=== PATIENT | female | born 1995 | race American Indian/Alaskan Native ===

== ENCOUNTER 2016-09-05 05:17 | Emergency (ER) | payer BC, MEDICAID ==
[2016-09-05 05:52] LABS: Basophils % (Auto) 0.3 % (0.0-1.8); Hemoglobin 13.6 gm/dl (10.1-14.3); Mean Corpuscular HGB Conc 33 % (30-34); Mean Corpuscular Hemoglobin 30 pg (28-32); Mean Corpuscular Volume 91 fl (79-97); Platelet Count 232 K/mm3 (140-440); Red Blood Count 4.53 M/mm3 (3.65-5.03); Red Cell Distribution Width 12.7 % (13.2-15.2); White Blood Count 9.4 K/mm3 (4.5-11.0)
[2016-09-05 06:10] LABS: Alanine Aminotransferase 7 units/L (7-56); Albumin 4.2 g/dL (3.9-5); Albumin/Globulin Ratio 1.2 %; Alkaline Phosphatase 61 units/L (35-129); Anion Gap 17 mmol/L; BUN/Creatinine Ratio 13.33; Blood Urea Nitrogen 8 mg/dL (7-17); Calcium 8.9 mg/dL (8.4-10.2); Carbon Dioxide 23 mmol/L (22-30); Chloride 100.5 mmol/L (98-107); Glucose 126 mg/dL (65-100); Lipase 25 units/L (13-60); Potassium 3.1 mmol/L (3.6-5.0); Sodium 137 mmol/L (137-145); Total Protein 7.6 g/dL (6.3-8.2)
[2016-09-05 06:49] LABS: Bacteria,Urine 1+ /HPF (Negative); Bilirubin,Urine NEG (Negative); Blood,Urine NEG (Negative); Ketones,Urine TR mg/dL (Negative); Leukocyte Esterase,Urine LG (Negative); Mucus,Urine 1+ /HPF; Nitrite,Urine NEG (Negative); Protein,Urine <15 mg/dL mg/dL (Negative); Urobilinogen,Urine < 2.0 mg/dL (<2.0)
--- NOTE | 2016-09-05 10:14 | Emergency Department Report ---
ED Abdominal Pain HPI - General Chief Complaint: Abdominal Pain Stated Complaint: ABD PAIN/VAGINAL DISCHARGE/ASTHMA Time Seen by Provider: 09/05/16 10:06 Source: patient Mode of arrival: Ambulatory Limitations: No Limitations - History of Present Illness Initial Comments: Patient is a 21-year-old female here with complaint of abdominal pain. She has pain in her upper abdomen. She said the pain for 2 days. No fevers chills nausea vomiting diarrhea. She does not know she is . She is unsure of her last period. Describes the pain as crampy intermittent and lasting 2 hours. -: days(s) Location: epigastric Radiation: none Severity: mild Severity scale (0 -10): 3 Quality: cramping Improves With: nothing Worsens With: nothing Associated Symptoms: denies other symptoms. denies: nausea, vomiting, diarrhea , fever, constipation, dysuria - Related Data Home Medications Medication Instructions Recorded Confirmed Last Taken Acyclovir [Zovirax Cap] 200 mg PO QID 09/15/14 09/15/14 09/13/14 Pnv Plus Multivit Tab 1 tab PO DAILY 09/15/14 09/15/14 09/14/14 Previous Rx's Medication Instructions Recorded Last Taken Type Famotidine [Pepcid] 20 mg PO BID #60 tablet 09/05/16 Unknown Rx Allergies Allergy/AdvReac Type Severity Reaction Status Date / Time oseltamivir phosphate AdvReac Intermediate Vomiting Verified 08/26/14 19:39 [From Tamiflu] ED Review of Systems ROS: Stated complaint: ABD PAIN/VAGINAL DISCHARGE/ASTHMA Other details as noted in HPI Comment: All other systems reviewed and negative Constitutional: denies: chills, fever Eyes: denies: eye pain, eye discharge, vision change ENT: denies: ear pain, throat pain Respiratory: denies: cough, shortness of breath, wheezing Cardiovascular: denies: chest pain, palpitations Endocrine: no symptoms reported Gastrointestinal: abdominal pain. denies: nausea, diarrhea Genitourinary: denies: urgency, dysuria, discharge Musculoskeletal: denies: back pain, joint swelling, arthralgia Skin: denies: rash, lesions Neurological: denies: headache, weakness, paresthesias Psychiatric: denies: anxiety, depression Hematological/Lymphatic: denies: easy bleeding, easy bruising ED Past Medical Hx - Past Medical History Previous Medical History?: Yes Hx Hypertension: No Hx Diabetes: No Hx Deep Vein Thrombosis: No Hx Renal Disease: No Hx Sickle Cell Disease: No Hx Seizures: No Hx Asthma: No Hx HIV: No - Surgical History Past Surgical History?: No - Family History Family history: no significant - Social History Smoking Status: Never Smoker Substance Use Type: None - Medications Home Medications: Home Medications Medication Instructions Recorded Confirmed Last Taken Type Acyclovir [Zovirax Cap] 200 mg PO QID 09/15/14 09/15/14 09/13/14 History Pnv Plus Multivit Tab 1 tab PO DAILY 09/15/14 09/15/14 09/14/14 History Famotidine [Pepcid] 20 mg PO BID #60 tablet 09/05/16 Unknown Rx ED Physical Exam - General Limitations: No Limitations General appearance: alert, in no apparent distress - Head Head exam: Present: atraumatic, normocephalic - Eye Eye exam: Present: normal appearance - ENT ENT exam: Present: mucous membranes moist - Neck Neck exam: Present: normal inspection - Respiratory Respiratory exam: Present: normal lung sounds bilaterally. Absent: respiratory distress, wheezes - Cardiovascular Cardiovascular Exam: Present: regular rate, normal rhythm. Absent: systolic murmur, diastolic murmur, rubs, gallop - GI/Abdominal GI/Abdominal exam: Present: soft, tenderness, normal bowel sounds. Absent: distended, guarding, rebound, rigid - Extremities Exam Extremities exam: Present: normal inspection - Back Exam Back exam: Present: normal inspection. Absent: full ROM, tenderness - Neurological Exam Neurological exam: Present: alert, oriented X3 - Psychiatric Psychiatric exam: Present: normal affect, normal mood - Skin Skin exam: Present: warm, dry, intact, normal color. Absent: rash ED Course Vital Signs 09/05/16 05:20 Temperature 97.5 F L Pulse Rate 90 Respiratory 18 Rate Blood Pressure 121/74 [Right] O2 Sat by Pulse 100 Oximetry ED Medical Decision Making - Lab Data Result diagrams: 09/05/16 05:34 09/05/16 05:34 Laboratory Results - last 24 hr 09/05/16 09/05/16 09/05/16 05:34 05:34 05:34 WBC 9.4 RBC 4.53 Hgb 13.6 Hct 41.0 MCV 91 MCH 30 MCHC 33 RDW 12.7 L Plt Count 232 Lymph % (Auto) 34.6 [place] % (Auto) 8.8 H Eos % (Auto) 4.0 Baso % (Auto) 0.3 Lymph # 3.2 [place] # 0.8 Eos # 0.4 Baso # 0.0 Seg Neutrophils % 52.3 Seg Neutrophils # 4.9 Sodium 137 Potassium 3.1 L Chloride 100.5 Carbon Dioxide 23 Anion Gap 17 BUN 8 Creatinine 0.6 L Estimated GFR > 60 BUN/Creatinine Ratio 13.33 Glucose 126 H Calcium 8.9 Total Bilirubin 0.80 AST 14 ALT 7 Alkaline Phosphatase 61 Total Protein 7.6 Albumin 4.2 Albumin/Globulin Ratio 1.2 Lipase 25 HCG, Qual Negative Urine Color Urine Turbidity Urine pH Ur Specific [place] Urine Protein Urine Glucose (UA) Urine Ketones Urine Blood Urine Nitrite Urine Bilirubin Urine Urobilinogen Ur Leukocyte Esterase Urine WBC (Auto) Urine RBC (Auto) U Epithel Cells (Auto) Urine Bacteria (Auto) Urine Mucus 09/05/16 06:33 WBC RBC Hgb Hct MCV MCH MCHC RDW Plt Count Lymph % (Auto) [place] % (Auto) Eos % (Auto) Baso % (Auto) Lymph # [place] # Eos # Baso # Seg Neutrophils % Seg Neutrophils # Sodium Potassium Chloride Carbon Dioxide Anion Gap BUN Creatinine Estimated GFR BUN/Creatinine Ratio Glucose Calcium Total Bilirubin AST ALT Alkaline Phosphatase Total Protein Albumin Albumin/Globulin Ratio Lipase HCG, Qual Urine Color Yellow Urine Turbidity Clear Urine pH 6.0 Ur Specific [place] 1.013 Urine Protein <15 mg/dl Urine Glucose (UA) Neg Urine Ketones Tr Urine Blood Neg Urine Nitrite Neg Urine Bilirubin Neg Urine Urobilinogen < 2.0 Ur Leukocyte Esterase Lg Urine WBC (Auto) 7.0 H Urine RBC (Auto) 2.0 U Epithel Cells (Auto) 6.0 Urine Bacteria (Auto) 1+ Urine Mucus 1+ - Medical Decision Making Patient is a 21-year-old female here with complaint of abdominal pain. She is a nontender on exam. She is not having any vaginal symptoms all this was documented in her triage note. She is non. She has 7 white blood cells in her urine but 6 epithelial cells without urinary symptoms. She is likely having some mild gastritis. We'll treat with Pepcid and Zofran and discharge. Portions of this chart were dictated with dictation software. There may be dictation errors contained within this note. Critical care attestation.: If time is entered above; I have spent that time in minutes in the direct care of this critically ill patient, excluding procedure time. ED Disposition Clinical Impression: Gastritis Disposition: DC- TO HOME OR SELFCARE Is pt being admited?: No Condition: Stable Instructions: Abdominal Pain (ED), Gastritis (ED) Prescriptions: Famotidine [Pepcid] 20 mg PO BID #60 tablet Referrals: CLARENCE ROGERS MD [Primary Care Provider] - 3-5 Days
[2016-09-05] MEDS: ALUM-MAG HYDROX-SIMETH 200-200-20MG/5ML PO ONE (10:37)
[2016-09-05] MEDS: PEPCID PO ONE (10:37)
[2016-09-05 10:38] VITALS: BP 122/68
== END 2016-09-05 10:39 | disposition home or self-care (01) ==
LOC: ED 05:17
DX: K29.70 Gastritis, unspecified, without bleeding (principal); Z88.8 Allergy status to other drugs, medicaments and biological substances
CPT/HCPCS: 36415; 80053; 81001; 83690; 84703; 85025; 99283